=== PATIENT | male | born 1995 | race Two or more races ===

== ENCOUNTER 2024-05-25 21:52 | Emergency (ER) | payer BC ==
[~2024-05-25] VITALS: Ht 167.6 cm; Wt 127.0 kg
[2024-05-25] MEDS ORDERED: cloNIDine HCL 0.2 MG TABLET PO ONE (23:00)
[2024-05-25] MEDS ORDERED: CLONIDINE HCL 0.1 MG TABLET PO ONE (23:10)
[2024-05-26] MEDS ORDERED: KETOROLAC TROMETHAMINE 10 MG TABLET PO ONE (00:48)
[2024-05-26] MEDS ORDERED: NIFEDIPINE 10 MG CAPSULE PO ONE ×2 (02:00→02:01)
[2024-05-26] MEDS ORDERED: KETO10TA2 PO (03:32)
[2024-05-26] MEDS ORDERED: NIFEDIPINE ER30 M1 PO (03:32)
== END 2024-05-26 03:46 ==
LOC: ER 21:53
DX: M25.569 Pain in unspecified knee (principal); I10 Essential (primary) hypertension